=== PATIENT | male | born 2000 | race Caucasian/White ===

== ENCOUNTER 2021-05-03 14:29 | Emergency (ER) | payer OTHER ==
[~2021-05-03] VITALS: Ht 170.2 cm; Wt 63.5 kg
[2021-05-03] MEDS ORDERED: IBU600 MG PO (17:18)
[2021-05-03] MEDS ORDERED: CEFADROXIL500 MG PO (17:18)
== END 2021-05-03 17:30 | disposition home or self-care (01) ==
LOC: EMR PED 14:29
DX: N50.811 Right testicular pain (principal)

== ENCOUNTER 2022-01-28 16:12 | Emergency (ER) | payer OTHER ==
[~2022-01-28] VITALS: Ht 172.7 cm; Wt 61.2 kg
[~2022-01-28 16:12] MED LIST: CEFADROXIL500 MG PO; IBU600 MG PO
== END 2022-01-28 17:31 | disposition home or self-care (01) ==
LOC: EMR PED 16:12
DX: S20.212A Contusion of left front wall of thorax, initial encounter (principal); W17.89XA Other fall from one level to another, initial encounter; Y93.9 Activity, unspecified; Y92.814 Boat as the place of occurrence of the external cause